=== PATIENT | female | born 1995 | race Caucasian/White ===

== ENCOUNTER 2019-10-05 10:46 | Outpatient (CLI) | payer BC, SELFPAY | END 2019-10-05 10:47 | disposition home or self-care (01) | PROVIDERS: PCP Family Medicine; Visit Provider Family Medicine | DX: Z34.91 Encounter for supervision of normal pregnancy, unspecified, first trimester (principal) | CPT/HCPCS: 36415; 84702 ==

== ENCOUNTER 2020-01-08 10:39 | Outpatient (CLI) | payer BC, SELFPAY ==
--- NOTE | ~2020-01-08 | US_ITS ---
EXAMINATION: US OB >= 14 weeks Fetus EXAM DATE: 01/08/2020 11:37 INDICATION: Anatomy 2nd trimester. TECHNIQUE: Pelvic obstetrical transabdominal sonogram was performed by a technologist. There are mu ltiple grayscale and Doppler images available for interpretation. There are no earlier studies of th is gestation for comparison. FINDINGS: There is a single fetus identified in breech presentation with a heart rate of 151 beats pe r minute. The placenta is located in the anterior position. There is no sonographic evidence of retr oplacental hemorrhage identified. There is subjectively expected amount of amniotic fluid. BIOMETRIC DATA: Biparietal diameter (BPD): 4.5cm ----------------> 19 weeks 3 days. Head circumference (HC): 17.5 cm ----------------> 20 weeks 0 days. Abdominal circumference (AC): 14.8 cm ----------> 20 weeks 0 days. Femur length (FL): 3.0 cm --------------------------> 19 weeks 1 day. These measurements are concordant. HC/AC ratio is 1.18 (The 5th -- 95th percentile range is 1.08-1.26. Estimated weight is 306 g +/- 46 g. This is the 28th percentile when the currently reported cl inical gestation age 20 weeks 0 days, clinical estimated date of delivery (YASMIN-OPE) 05/27 is used. Fet al estimated gestational age based on measurements from this exam is 19 weeks 5 days, with an estimat ed date of delivery (YASMIN-AUA) 05/29. ANATOMIC SURVEY: The following anatomy is identified and is sonographically normal in appearance: Cerebral ventricles Cerebellum Cisterna magna Nuchal fold CTL-spine Four-chamber heart Diaphragm Stomach Kidneys Bladder Three-vessel cord Cord insertion IMPRESSION: 1. Single fetus in vertex presentation with heart rate 151 beats per minute. 2. Estimated weight of 306 grams, 28th percentile using the currently reported clinical gestat ion age of 20 weeks 0 days, YASMIN(OPE) 05/27. 3. Normal anatomic survey. Reviewed, dictated and finalized at location A. PROCESSING CLERK IMPRESSION: 1. Single fetus in vertex presentation with heart rate 151 beats per minute. 2. Estimated weight of 306 grams, 28th percentile using the currently re ported clinical gestation age of 20 weeks 0 days, YASMIN(OPE) 05/27. 3. Normal anatomic survey.
== END 2020-01-08 10:40 ==
PROVIDERS: Visit Provider Family Medicine
DX: Z34.92 Encounter for supervision of normal pregnancy, unspecified, second trimester (principal); Z3A.20 20 weeks gestation of pregnancy
CPT/HCPCS: 76805

== ENCOUNTER 2020-10-16 13:22 | Outpatient (CLI) | payer OTHER, SELFPAY ==
[2020-10-16 14:24] LABS: Free T4 Free Thyroxine 0.61 ng/dL (0.76-1.46); Thyroid Stimulating Hormone 43.94 uIU/mL (0.36-3.74)
== END 2020-10-16 13:23 | disposition home or self-care (01) ==
LOC: CHSLAB 13:26
PROVIDERS: PCP Nurse Practitioner Family; Visit Provider Nurse Practitioner Family
DX: E03.9 Hypothyroidism, unspecified (principal); E05.90 Thyrotoxicosis, unspecified without thyrotoxic crisis or storm
CPT/HCPCS: 36415; 84439; 84443

== ENCOUNTER 2020-10-21 13:04 | Outpatient (CLI) | payer OTHER, SELFPAY ==
--- NOTE | ~2020-10-21 | XR_ITS ---
XR lumbar spine 2-3V DATE: 10/21/2020 13:28 INDICATION: Back pain TECHNIQUE: AP, lateral, coned lateral lumbosacral views COMPARISON: None FINDINGS: No fracture or bone destruction or spondylolisthesis. The lumbar and lumbosacral interspace s are well preserved. The sacroiliac joints are intact. IMPRESSION: Negative Reviewed, dictated and finalized at location A. IMPRESSION: Negative
--- NOTE | ~2020-10-21 | XR_ITS ---
XR thoracic spine 2V DATE: 10/21/2020 13:28 INDICATION: Back pain, radiating to neck. TECHNIQUE: AP, lateral, swimmer views COMPARISON: 10/21/2020 lumbar spine FINDINGS: No fracture or dislocation or bone destruction. The thoracic pedicles are intact. No parasp inal soft tissue thickening. IMPRESSION: Negative Reviewed, dictated and finalized at location A. IMPRESSION: Negative
== END 2020-10-21 13:05 | disposition home or self-care (01) ==
LOC: CHSIMG 13:08
PROVIDERS: PCP Nurse Practitioner Family; Visit Provider Nurse Practitioner Family
DX: M54.9 Dorsalgia, unspecified (principal)
CPT/HCPCS: 72070; 72100

== ENCOUNTER 2021-01-21 19:57 | Emergency (ER) | payer OTHER, SELFPAY ==
[2021-01-21 20:45] VITALS: BP 132/93; PULSE 108; RESP 18; TEMP 37.3; O2SAT 100
--- NOTE | 2021-01-21 20:55 | ED.DENTAL ---
HPI - Dental/Oral General Chief complaint: Dental/Oral Stated complaint: tooth infection Time Seen by Provider: 01/21/21 20:55 Source: patient Mode of arrival: ambulatory Limitations: no limitations History of Present Illness HPI Narrative: 25-year-old woman comes in today complaining of pain in her left upper posterior teeth that has been present for the last 2 days. Patient states that she has had dental pain problem since she had her wisdom tooth extracted there a few months ago. She states her face feels swollen she has a sore throat although she is able to swallow without difficulty. She has had no fever vomiting. She started some antibiotics and pain medication yesterday and has been taking ibuprofen frequently ( like candy ). Complaint: tooth pain Onset (ago): day(s) (2) Duration: constant Severity: severe Relieving factors: nothing Exacerbating factors: nothing Associated symptoms: sore throat Treatment prior to arrival: oral analgesic Related Data Allergies Allergy/AdvReac Type Severity Reaction Status Date / Time acetaminophen [Vicodin] Allergy Intermediate Verified 01/23/18 16:33 hydrocodone [Vicodin] Allergy Intermediate Verified 01/23/18 16:33 latex Allergy Intermediate Verified 01/23/18 16:32 Penicillins Allergy Intermediate Verified 01/23/18 16:32 Radiographic Dyes/Iodine Allergy Intermediate Uncoded 01/23/18 16:32 Review of Systems Review of Systems: All systems reviewed & are unremarkable except as noted in HPI and below Constitutional: Constitutional: Denies chills and Denies fever(s) Eyes: Eyes: Denies change in vision and Denies photophobia ENT: Denies dysphagia, Denies nasal congestion and Denies sore throat Cardiovascular: Cardiovascular: Denies chest pain and Denies radiating jaw, neck or arm pain Respiratory: Respiratory: Denies dyspnea and Denies wheezing Gastrointestinal: Gastrointestinal: Denies nausea and Denies vomiting Integumentary/Breasts: Skin/Breast: Denies pruritus, Denies erythema and Denies rash Allergic/Immunologic: Allergic/Immunologic: Denies lip swelling, Denies throat swelling and Denies tongue swelling PMFSH Past Medical History Medical History Anxiety and depression Hypothyroidism Family History Family History Mother Cerebrovascular accident Social History Social History Smoking status: Never smoker Smokeless tobacco user: chewing tobacco Alcohol intake: current Substance use: never Gender identity (if verbalized by the patient): Female Exam Const: General: healthy appearing and alert Orientation/consciousness: patient oriented x3 Limitations: no limitations Other: Moderate to severe acute distress. HENMT: Head: normal to inspection Ears: external ears normal, TM's normal bilaterally and EAC's normal General nose exam: Normal nares present Face and sinus: normal facial exam Mouth: Yes moist mucous membranes Throat: posterior oropharynx normal Other: Uvula midline. No gingival swelling, erythema or purulent discharge. Eyes: Conjunctivae: conjunctivae normal Pupils: Equal, round and reactive pupils present Resp: Effort & Inspection: normal respiratory effort and not labored Auscultation: clear to auscultation bilaterally, no rales, no rhonchi and no wheezes Cardio: Rate: regular rate Rhythm: regular rhythm Heart sounds: no murmurs Skin: General skin exam: normal color, no jaundice and no pallor Rashes: no rashes Neuro: General: patient oriented x3, moves all extremities, no focal motor deficits and CN's II-XI intact bilaterally Speech: normal speech Gait exam (Neuro): Normal gait present Extrem: General: normal to inspection and no clubbing, cyanosis or edema Psych: Appearance: grossly normal and well kempt Mental Status: mental status grossly normal Affect:
[2021-01-21] MEDS: CLINDAMYCIN HCL 150 MG CAP 600 MG PO (21:21)
[2021-01-21 21:47] VITALS: BP 126/86; PULSE 96; RESP 16; O2SAT 95
== END 2021-01-21 21:50 | disposition home or self-care (01) ==
PROVIDERS: Emergency Provider Emergency Medicine; PCP Nurse Practitioner Family
DX: K08.89 Other specified disorders of teeth and supporting structures (principal)
CPT/HCPCS: 99283; A9270

== ENCOUNTER 2021-02-13 07:16 | Outpatient (CLI) | payer OTHER, SELFPAY ==
--- NOTE | ~2021-02-13 | US_ITS ---
EXAMINATION: US thyroid EXAM DATE: 02/13/2021 07:47 INDICATION: E04.9 - Nontoxic goiter, unspecified. TECHNIQUE: Multiple grayscale and Doppler images of the thyroid were obtained (by a technologist who performed the scan) and subsequently reviewed. Individual nodules and recommendations may be reporte d in accordance with TI-RADS system as designated by the 2017 ACR White Paper TI-RADS committee. The re is no prior study for comparison. FINDINGS: The right thyroid lobe measures 6.2 x 2.5 x 2.7 cm, the left measuring 4.3 x 1.1 x 1.3 cm. There is d iffusely heterogeneous echogenicity and hypervascularity. No definite superimposed focal nodule is id entified. IMPRESSION: Right thyroid lobe enlargement, hypervascular goiter. Reviewed, dictated and finalized at location B. CAL MASSAGE THERAPIST
[2021-02-13 08:41] LABS: Free T4 Free Thyroxine 0.82 ng/dL (0.76-1.46); Thyroid Stimulating Hormone 12.75 uIU/mL (0.36-3.74)
== END 2021-02-13 07:17 | disposition home or self-care (01) ==
LOC: CHSIMG 07:17
PROVIDERS: PCP Nurse Practitioner Family; Visit Provider Nurse Practitioner Family
DX: E04.9 Nontoxic goiter, unspecified (principal); E03.9 Hypothyroidism, unspecified
CPT/HCPCS: 36415; 76536; 84439; 84443

== ENCOUNTER 2021-04-30 13:51 | Outpatient (CLI) | payer OTHER, SELFPAY ==
[2021-04-30 14:48] LABS: Thyroid Stimulating Hormone 2.75 uIU/mL (0.36-3.74)
== END 2021-04-30 13:52 | disposition home or self-care (01) ==
LOC: CHSLAB 13:54
PROVIDERS: PCP Nurse Practitioner Family; Visit Provider Nurse Practitioner Family
DX: E03.9 Hypothyroidism, unspecified (principal)
CPT/HCPCS: 36415; 84443

== ENCOUNTER 2021-06-24 14:53 | Outpatient (CLI) | payer OTHER, SELFPAY ==
--- NOTE | ~2021-06-24 | US_ITS ---
EXAMINATION: US pelvic complete w TV DATE: 06/24/2021 15:11 INDICATION: Pelvic and perineal pain TECHNIQUE: Multiple transabdominal and endovaginal sonographic images of the pelvis were obtained. COMPARISON: None. FINDINGS: The uterus measures 8.1 x 4.1 x 5.0 cm. The endometrial complex measures 6 mm. The right ov ant measures 4.1 x 2.0 x 1.8 cm. The left ovary measures 3.6 x 2.0 x 1.8 cm. There is normal vascular flow in the ovaries. There is no free fluid in the pelvis. IMPRESSION: 1. No sonographic correlate for the patient's symptoms. Reviewed, dictated and finalized at location F.
== END 2021-06-24 14:54 | disposition home or self-care (01) ==
LOC: CHSIMG 14:54
PROVIDERS: PCP Nurse Practitioner Family; Visit Provider Student in an Organized Health Care Education/Training Program
DX: R10.2 Pelvic and perineal pain (principal)
CPT/HCPCS: 76830; 76856

== ENCOUNTER 2021-09-04 09:58 | Outpatient (CLI) | payer OTHER, SELFPAY | END 2021-09-04 09:59 | disposition home or self-care (01) | LOC: CHSLAB 10:02 | PROVIDERS: PCP Nurse Practitioner Family; Visit Provider Nurse Practitioner Family | DX: N91.2 Amenorrhea, unspecified (principal) | CPT/HCPCS: 36415; 84702 ==

== ENCOUNTER 2021-09-14 07:22 | Outpatient (CLI) | payer OTHER, SELFPAY ==
--- NOTE | ~2021-09-14 | US_ITS ---
EXAMINATION: US OB <= 14 weeks fetus DATE: 09/14/2021 07:52 INDICATION: Assess dating and viability of during first trimester TECHNIQUE: Real-time pelvic ultrasound utilizing both a transvaginal and transabdominal probe was pe rformed. The interpreting radiologist was not present for the study. COMPARISON: None. FINDINGS: The uterus measures 9.8 x 5.9 x 6.2 cm. There is a likely intrauterine gestational sac with double d ecidua sign evident peripheral partially 2 mm likely yolk sac. No definitive pole yet evident. The mean sac diameter measures 11 mm, which correlates with an estimated gestational age of 5 weeks a nd 6 days. The bilateral ovaries are not visualized. There is no free fluid in the pelvis. IMPRESSION: 1. Single likely intrauterine gestational with suggestion of a yolk sac but without a clearly discern ible pole likely due to early stage of . 2. Gestational age by ultrasound of 5 weeks 6 day(s) +/- 4 day(s) with ultrasound estimated date of delivery (YASMIN) of 05/11/2022. Reviewed, dictated and finalized at location A. IMPRESSION: 1. Single likely intrauterine gestational with suggestion of a yolk sac but wit hout a clearly discernible pole likely due to early stage of . 2. Gestational age by ultrasound of 5 weeks 6 day(s) +/- 4 day(s) with ultraso und estimated date of delivery (YASMIN) of 05/11/2022.
== END 2021-09-14 07:23 | disposition home or self-care (01) ==
LOC: CHSIMG 07:23
PROVIDERS: PCP Nurse Practitioner Family; Visit Provider Student in an Organized Health Care Education/Training Program
DX: Z34.91 Encounter for supervision of normal pregnancy, unspecified, first trimester (principal); Z3A.00 Weeks of gestation of pregnancy not specified
CPT/HCPCS: 76801

== ENCOUNTER 2021-09-23 08:42 | Outpatient (CLI) | payer OTHER, SELFPAY ==
--- NOTE | ~2021-09-23 | US_ITS ---
EXAMINATION: US OB <=14 wk fetus w TV DATE: 09/23/2021 09:15 INDICATION: First trimester viability assessment TECHNIQUE: Real-time pelvic transabdominal and transvaginal ultrasound was performed. COMPARISON: 09/14/2021 FINDINGS: The uterus measures 8.8 x 6.1 x 7.1 cm. There is an intrauterine gestational sac. There is an approximately 1.9 x 0.6 cm hypoechoic area adjacent to the gestational sac. A yolk sac is identif ied. heart motion is identified measuring 155 beats per minute (bpm) by M-mode Doppler. The fet al crown rump length measures 9 mm , which correlates with an estimated gestational age of 6 weeks an d 6 day(s) (+/-) 4 day(s). The right ovary measures 2.3 x 2.1 x 1.1 cm. The left ovary measures 2.9 x 1.6 x 2.6 cm. There is nor mal vascular flow in the ovaries. There is trace free fluid adjacent to the left ovary. IMPRESSION: 1. Live intrauterine with an estimated gestational age of 6 weeks and 6 day(s) (+/-) 4 day( s) and an estimated delivery date of 05/13/2022. 2. Small subchronic hematoma. Reviewed, dictated and finalized at location B. IMPRESSION: 1. Live intrauterine with an estimated gestational age of 6 weeks and 6 day(s) (+/-) 4 day(s) and an estimated delivery date of 05/13/2022. 2. Small subchronic hematoma.
== END 2021-09-23 08:43 | disposition home or self-care (01) ==
LOC: CHSIMG 08:44
PROVIDERS: PCP Nurse Practitioner Family; Visit Provider Student in an Organized Health Care Education/Training Program
DX: Z32.00 Encounter for pregnancy test, result unknown (principal)
CPT/HCPCS: 76801; 76817

== ENCOUNTER 2021-11-13 11:24 | Outpatient (CLI) | payer OTHER, SELFPAY ==
[2021-11-13 11:57] LABS: Basophils Percent Auto 0.4 % (0.2-1.2); Eosinophils Absolute Auto 0.1 K/mm3 (0-0.3); Hematocrit 39.7 % (37.0-47.0); Hemoglobin 13.7 g/dL (12.0-15.0); Immature Granulocyte Absolute 0.05 K/mm3 (0.00-0.031); Immature Granulocyte Percent A 0.5 % (0-0.5); Mean Corpuscular HGB Conc 34.5 g/dl (32-36); Mean Corpuscular Hemoglobin 31.6 pg (26-34); Mean Corpuscular Volume 91.7 fl (80-100); Mean Platelet Volume 10.2 fl (7.4-10.4); Monocytes Absolute Auto 0.6 K/mm3 (0.1-0.6); Neutrophils Absolute Auto 7.8 K/mm3 (1.3-6.7); Neutrophils Percent Auto 71.1 % (45.5-73.1); Platelet Count Result 307 k/mm3 (150-375); Red Blood Count 4.33 M/mm3 (4.2-5.4); Red Cell Distribution Width 12.8 % (11.5-14.5); White Blood Count 10.9 K/mm3 (4.5-10.0)
[2021-11-13 12:55] LABS: Vitamin D 25 Hydroxy 31.4 ng/mL
[2021-11-13 13:12] LABS: HIV 1/2 Ab P24 Ag Result Negative (Negative)
[2021-11-13 13:15] LABS: Hepatitis B Surface Antigen Negative (Negative); Rubella IgG Antibody 26.4 IU/ML
[2021-11-13 13:31] LABS: Hepatitis C Virus Antibody Negative (Negative)
[2021-11-13 13:47] LABS: Rapid Plasma Reagin Non-Reactive (NonReactive)
[2021-11-17 17:51] LABS: Hematocrit 42.7 % (35.0-45.0); Hemoglobin 13.9 g/dL (11.7-15.5); MCH 31.5 pg (27.0-33.0); MCV 96.8 fL (80.0-100.0); RDW 12.9 % (11.0-15.0); Red Blood Cell Count 4.41 Mill/uL (3.80-5.10)
[2021-11-17 19:02] LABS: Varicella IgG Antibody <135.00 Index (>=165.00)
== END 2021-11-14 12:00 | disposition home or self-care (01) ==
PROVIDERS: Nurse Practitioner Family; PCP Student in an Organized Health Care Education/Training Program; Visit Provider Student in an Organized Health Care Education/Training Program
DX: Z34.90 Encounter for supervision of normal pregnancy, unspecified, unspecified trimester (principal); N91.2 Amenorrhea, unspecified; Z3A.00 Weeks of gestation of pregnancy not specified
CPT/HCPCS: 36415; 82306; 83021; 84443; 84702; 85025; 86592; 86703; 86762; 86787; 86803; 86850; 86900; 86901; 87077; 87086; 87186; 87340; G0432

== ENCOUNTER 2022-02-16 10:53 | Outpatient (CLI) | payer BC, SELFPAY ==
[2022-02-16 11:58] LABS: Basophils Absolute Auto 0.03 K/mm3 (0.00-0.10); Basophils Percent Auto 0.3 % (0.0-1.0); Eosinophils Absolute Auto 0.12 K/mm3 (0.02-0.50); Eosinophils Percent Auto 1.2 % (1.0-6.0); Hematocrit 37.2 % (35.0-49.0); Hemoglobin 12.5 g/dL (12.0-15.0); Immature Granulocyte Absolute 0.08 K/mm3 (0.00-0.00); Immature Granulocyte Percent A 0.8 % (0.0-0.0); Lymphocytes Absolute Auto 1.91 K/mm3 (1.10-4.50); Lymphocytes Percent Auto 18.7 % (18.0-42.0); Mean Corpuscular HGB Conc 33.6 g/dL (32.0-36.0); Mean Corpuscular Hemoglobin 32.1 pg (27.0-31.0); Mean Corpuscular Volume 95.6 fL (78.0-102.0); Mean Platelet Volume 9.9 fl (9.2-11.8); Monocytes Absolute Auto 0.41 K/mm3 (0.10-0.90); Neutrophils Absolute Auto 7.7 K/mm3 (1.7-7.2); Platelet Count Result 270 K/mm3 (150-420); Red Blood Count 3.89 M/mm3 (4.20-5.40); Red Cell Distribution Width 12.6 % (11.6-14.4); White Blood Count 10.2 K/mm3 (4.8-10.8)
[2022-02-16 12:40] LABS: Thyroid Stimulating Hormone 1.81 uIU/mL (0.36-3.74)
[2022-02-16 12:41] LABS: Glucose 1 Hour PP 50gm Dose 136 mg/dL (70-130)
[2022-02-19 17:26] LABS: T4 Thyroxine 13.3 mcg/dL (5.9-10.3)
== END 2022-02-16 10:54 | disposition home or self-care (01) ==
LOC: CHSLAB 10:55
PROVIDERS: PCP Student in an Organized Health Care Education/Training Program; Visit Provider Student in an Organized Health Care Education/Training Program
DX: Z34.82 Encounter for supervision of other normal pregnancy, second trimester (principal)
CPT/HCPCS: 36415; 82947; 84436; 84443; 85025

== ENCOUNTER 2022-02-24 11:06 | Outpatient (CLI) | payer BC, SELFPAY ==
[2022-02-24 11:58] LABS: Glucose Fasting Gestational 81 mg/dL (>/=95)
[2022-02-24 12:57] LABS: Glucose 1 Hour Gest 128 mg/dL (70-130)
[2022-02-24 13:51] LABS: Glucose 2 Hour Gest 138 mg/dL (<155)
[2022-02-24 14:47] LABS: Glucose 3 Hour Gest 125 mg/dL (>/=140)
== END 2022-02-24 11:07 | disposition home or self-care (01) ==
LOC: CHSLAB 11:08
PROVIDERS: PCP Obstetrics & Gynecology; Visit Provider Student in an Organized Health Care Education/Training Program
DX: O99.810 Abnormal glucose complicating pregnancy (principal); Z3A.00 Weeks of gestation of pregnancy not specified
CPT/HCPCS: 36415; 82951; 82952

== ENCOUNTER 2022-03-22 14:18 | Outpatient (CLI) | payer BC, SELFPAY ==
[2022-03-22 14:31] LABS: Basophils Absolute Auto 0.02 K/mm3 (0.00-0.10); Basophils Percent Auto 0.2 % (0.0-1.0); Eosinophils Absolute Auto 0.15 K/mm3 (0.02-0.50); Eosinophils Percent Auto 1.4 % (1.0-6.0); Hematocrit 36.3 % (35.0-49.0); Hemoglobin 12.2 g/dL (12.0-15.0); Immature Granulocyte Percent A 0.9 % (0.0-0.0); Lymphocytes Absolute Auto 2.15 K/mm3 (1.10-4.50); Lymphocytes Percent Auto 19.5 % (18.0-42.0); Mean Corpuscular HGB Conc 33.6 g/dL (32.0-36.0); Mean Corpuscular Hemoglobin 31.5 pg (27.0-31.0); Mean Corpuscular Volume 93.8 fL (78.0-102.0); Mean Platelet Volume 9.9 fl (9.2-11.8); Monocytes Absolute Auto 0.88 K/mm3 (0.10-0.90); Neutrophils Absolute Auto 7.7 K/mm3 (1.7-7.2); Platelet Count Result 281 K/mm3 (150-420); Red Blood Count 3.87 M/mm3 (4.20-5.40); Red Cell Distribution Width 12.6 % (11.6-14.4)
[2022-03-22 15:33] LABS: HIV 1 P24 AG Negative (Negative); HIV 1/2 AB Negative (Negative)
[2022-03-24 15:05] LABS: RPR Screen Non-Reactive (Non-Reactive)
== END 2022-03-22 14:19 | disposition home or self-care (01) ==
LOC: CHSLAB 14:20
PROVIDERS: PCP Obstetrics & Gynecology; Visit Provider Obstetrics & Gynecology
DX: Z34.90 Encounter for supervision of normal pregnancy, unspecified, unspecified trimester (principal)
CPT/HCPCS: 36415; 85025; 86592; 86703

== ENCOUNTER 2022-05-06 10:56 | Outpatient (RCR) | payer BC, SELFPAY ==
--- NOTE | ~2022-05-06 | US_ITS ---
EXAMINATION: US OB follow up DATE: 05/06/2022 12:13 INDICATION: Polyhydramnios. Third trimester. TECHNIQUE: Real-time ultrasound of the pelvis was performed. COMPARISON: Ultrasound 09/23/2021, 09/14/21 FINDINGS: There is a single living fetus in vertex presentation. The placenta is right posterior. heart rate is 132 beats per minute (bpm). The amniotic fluid index is 21.7 cm, which is normal. The following biometric data were obtained: Biparietal diameter (BPD): 9.7 cm; head circumference (HC): 36.4 cm; abdominal circumference (AC): 35 .4 cm; femur length (FL): 7.3 cm. These measurements are concordant. Estimated weight is 3771 g +/- 566 g, which correlates with the 78th percentile when 05/13/22 is used as estimated date of delivery. As single measurements, these parameters are each equal to the following estimated gestational ages: BPD: 39 weeks 6 days. HC: Out of range. AC: 39 weeks 2 days. FL: 37 weeks 2 days. estimated gestational age based solely on measurements from this exam is 38 weeks 6 days +/- 2 weeks 5 days. IMPRESSION: 1. Single living fetus in vertex presentation. 2. Estimated weight is 3771 g +/- 566 g, which correlates with the 78th percentile when 3 is used as estimated date of delivery. This date was set by ultrasound on 09/23/2021. Reviewed, dictated and finalized at location A. SANDER IMPRESSION: 1. Single living fetus in vertex presentation. 2. Estimated weight is 3771 g +/- 566 g, which correlates with the 78th percentile when 05/13/22 is used as estimated date of delivery. This date was se t by ultrasound on 09/23/2021.
[2022-05-06 11:32] LABS: Alanine Aminotransferase 21 U/L (6-35); Albumin Level 3.4 g/dL (3.5-5.1); Alkaline Phosphatase 218 U/L (38-126); Anion Gap 4 mmol/L (8-16); Aspartate Amino Transferase 23 U/L (14-36); Bilirubin,Total 0.4 mg/dL (0.2-1.3); Blood Urea Nitrogen 4 mg/dL (7-17); Carbon Dioxide 21 mmol/L (22-30); Chloride 107 mmol/L (98-107); Estimated Glomerular Filt Rate > 60; Glucose 83 mg/dL (65-110); Potassium 4.1 mmol/L (3.4-5.0); Sodium 132 mmol/L (137-145)
[2022-05-06 12:00] VITALS: BP 117/70; PULSE 103
== END 2022-05-15 19:52 | disposition home or self-care (01) ==
LOC: ANHOBOP 10:56
PROVIDERS: PCP Nurse Practitioner Family; Visit Provider Obstetrics & Gynecology
DX: O40.3XX0 Polyhydramnios, third trimester, not applicable or unspecified (principal); Z3A.39 39 weeks gestation of pregnancy
CPT/HCPCS: 36415; 59025; 76816; 80053; J2274

== ENCOUNTER 2022-05-10 17:36 | Inpatient (IN) | payer BC, SELFPAY ==
[2022-05-10 17:54] VITALS: BP 120/84; PULSE 105
[2022-05-10 18:00] VITALS: BP 125/72; PULSE 98
[2022-05-10 18:07] LABS: Basophils Percent Auto 0.2 % (0.2-1.2); Eosinophils Absolute Auto 0.2 K/mm3 (0-0.3); Eosinophils Percent Auto 1.3 % (0-4.4); Hematocrit 38.9 % (37.0-47.0); Immature Granulocyte Absolute 0.05 K/mm3 (0.00-0.031); Immature Granulocyte Percent A 0.4 % (0-0.5); Lymphocytes Absolute Auto 2.09 K/mm3 (0.9-3.2); Lymphocytes Percent Auto 17.7 % (18.3-44.2); Mean Corpuscular HGB Conc 33.4 g/dl (32-36); Mean Corpuscular Volume 92.8 fl (80-100); Mean Platelet Volume 10.4 fl (7.4-10.4); Monocytes Absolute Auto 0.9 K/mm3 (0.1-0.6); Monocytes Percent Auto 7.9 % (2.6-8.5); Neutrophils Absolute Auto 8.6 K/mm3 (1.3-6.7); Neutrophils Percent Auto 72.5 % (45.5-73.1); Platelet Count Result 274 k/mm3 (150-375); Red Blood Count 4.19 M/mm3 (4.2-5.4); Red Cell Distribution Width 13.1 % (11.5-14.5); White Blood Count 11.8 K/mm3 (4.5-10.0)
--- NOTE | 2022-05-10 18:25 | LDADM ---
This patient, Vivi Wilks, was admitted to Labor/Delivery/Recovery 108 on 05/10/22 at 17:36. Plans for labor, pain management and were discussed with patient. Patient/family oriented to hospital policies and general routines including ID bracelet, bed and alarms, visiting hours, pain management, procedures, bathroom and other care routines, personal items, smoking policy, room service/diet and guest tray routines, security routines, and visiting hours. Patient/Family are encouraged to report perceived risks to care and to ask questions if they do not understand what they are told or what they should do. See OBIX for further documentation.
[2022-05-10 18:32] VITALS: BMI 39.0
[2022-05-10] MEDS: DINOPROSTONE 10 MG VAG INSERT VAGINAL (18:46)
--- NOTE | 2022-05-10 20:54 | WPDANESEPP ---
Anes - Eval Pre Procedure Procedure: labor epidural Date/Time: 05/10/22 20:54 Preop Diagnosis: pain during labor Pre Op Diagnosis: Induction of Labor Patient Data Age: 26 Gender: F Height: 1.6 m Weight: 100 kg Last Vital Signs Pulse 98 05/10/22 18:00 BP 125/72 05/10/22 18:00 O2 Del Method Room Air 05/10/22 18:32 Allergies Allergy/AdvReac Type Severity Reaction Status Date / Time acetaminophen [Vicodin] Allergy Intermediate unknown Verified 05/06/22 10:20 hydrocodone [Vicodin] Allergy Intermediate unknown Verified 05/06/22 10:20 latex Allergy Intermediate unknown Verified 05/06/22 10:20 Penicillins Allergy Intermediate unknown Verified 05/06/22 10:20 Radiographic Dyes/Iodine Allergy Intermediate unknown Uncoded 05/06/22 10:20 Home Medications Medication Instructions Recorded Confirmed Type prenat.vits,jil,[id number] 1 tablet PO DAILY 09/10/21 11/25/21 History levothyroxine 125 mcg capsule 125 mcg PO DAILY #30 caps 04/30/22 05/10/22 Rx sertraline 50 mg tablet (Zoloft) 50 mg PO DAILY #90 tabs 04/30/22 05/10/22 Rx Laboratory Tests 05/10/22 05/10/22 05/10/22 17:50 17:50 17:50 WBC 11.8 K/mm3 H K/mm3 (4.5-10.0) RBC 4.19 M/mm3 L M/mm3 (4.2-5.4) Hgb 13.0 g/dL g/dL (12.0-15.0) Hct 38.9 % % (37.0-47.0) MCV 92.8 fl fl (80-100) MCH 31.0 pg pg (26-34) MCHC 33.4 g/dl g/dl (32-36) RDW 13.1 % % (11.5-14.5) Plt Count 274 k/mm3 k/mm3 (150-375) MPV 10.4 fl fl (7.4-10.4) Immature Gran % (Auto) 0.4 % % (0-0.5) Neut % (Auto) 72.5 % % (45.5-73.1) Lymph % (Auto) 17.7 % L % (18.3-44.2) [place]ffie % (Auto) 7.9 % % (2.6-8.5) Eos % (Auto) 1.3 % % (0-4.4) Baso % (Auto) 0.2 % % (0.2-1.2) Lymph # (Auto) 2.09 K/mm3 K/mm3 (0.9-3.2) [place]ff[place] # (Auto) 0.9 K/mm3 H K/mm3 (0.1-0.6) Eos # (Auto) 0.2 K/mm3 K/mm3 (0-0.3) Baso # (Auto) 0.0 K/mm3 K/mm3 (0.0-0.1) Abs Immat Gran (auto) 0.05 K/mm3 H K/mm3 (0.00-0.031) Absolute Neuts (auto) 8.6 K/mm3 H K/mm3 (1.3-6.7) Absolute Nucleated RBC 0.0 K/mm3 K/mm3 (0.0-0.012) Nucleated RBC % 0.0 % % (0.0-0.2) RPR Pending Blood Type O Positive Antibody Screen Negative Patient hx anesthesia problems: none Family hx anesthesia problems: none Results Review: All pre-operative results and documents have been reviewed as part of the pre-operative evaluation. [facility] Past Medical History Medical History (Updated 05/10/22 @ 20:54 by Shani Jackson CRNA) Anxiety and depression Hypothyroidism Intrauterine Obesity (BMI 30-39.9) Family History Family History Mother Cerebrovascular accident Hypertension Heart disease Thyroid disorder Social History Social History Smoking status: Never smoker Smokeless tobacco user: chewing tobacco Alcohol intake: current Substance use: never Lack of Transportation: No Lack of Food: Never True Current Housing: I Have Housing Concerned About Future Housing: No Difficulty Paying Gas/Electric Bills: No Difficulty Paying for Meds: No Currently Unemployed: No Education: High School Diploma/GED Difficulty w/ Childcare or Family Care: No Living arrangements: with family Gender identity (if verbalized by the patient): Female Spiritual care concerns: No Exam Day of Procedure 05/10/22 20:54
[2022-05-10 22:06] VITALS: BP 131/84; PULSE 90
[2022-05-10 22:48] VITALS: TEMP 37
[2022-05-11] VITALS (211 sets, daily range): BP systolic 70–159; BP diastolic 28–144; PULSE 72–158; RESP 16–20; TEMP 36.3–37.9; O2SAT 79–100
[2022-05-11 06:35] LABS: Rapid Plasma Reagin Non-Reactive (NonReactive)
[2022-05-11] MEDS: LACTATED RINGERS 1,000 ML 125 ML IV CONT ×4 (07:31→17:58)
[2022-05-11] MEDS: OXYTOCIN 30 UNITS/NS 500 ML 30 UNITS/500 ML BAG IV CONT (07:32)
--- NOTE | 2022-05-11 08:29 | PM.IMHP ---
H&P: HPI History of Present Illness Date/Time: 05/11/22 08:29 Chief Complaint: MIL Narrative: Patient is a at 39 5/7 weeks by first trimester ultrasound. She presented for MIL. PNC significant for hypothyroidism and history of anxiety/depression. Last ultrasound for growth 78%. Labs reviewed. GBS neg. She has been informed of risk benefits of MIL vs spontaneous labor and has opted for MIL. Review of Systems Review of Systems: All systems reviewed & are unremarkable except as noted in HPI and below Constitutional: Constitutional: Reports no additional constitutional complaints and Denies headache(s) Eyes: Eyes: Denies spots in vision ENT: Reports system reviewed and no additional complaints, except as documented and Denies headache(s) Cardiovascular: Cardiovascular: Denies chest pain and Denies dyspnea Respiratory: Respiratory: Denies dyspnea Gastrointestinal: Gastrointestinal: Reports no additional gastrointestinal complaints Genitourinary: Genitourinary: Reports amenorrhea Musculoskeletal: Musculoskeletal: Reports no additional musculoskeletal complaints Integumentary/Breasts: Skin/Breast: Denies breast mass and Denies rash Neurologic: Denies headache(s) Psychiatric: Psychiatric: Reports no additional psychiatric complaints [facility] Past Medical History Medical History Anxiety and depression Hypothyroidism Intrauterine Obesity (BMI 30-39.9) Family History Family History Mother Cerebrovascular accident Hypertension Heart disease Thyroid disorder Social History Social History Smoking status: Never smoker Smokeless tobacco user: chewing tobacco Alcohol intake: current Substance use: never Lack of Transportation: No Lack of Food: Never True Current Housing: I Have Housing Concerned About Future Housing: No Difficulty Paying Gas/Electric Bills: No Difficulty Paying for Meds: No Currently Unemployed: No Education: High School Diploma/GED Difficulty w/ Childcare or Family Care: No Living arrangements: with family Gender identity (if verbalized by the patient): Female Spiritual care concerns: No Meds Home Medications and Allergies Home Medications Medication Instructions Recorded Confirmed Type prenat.vits,jil,[id number] 1 tablet PO DAILY 09/10/21 11/25/21 History levothyroxine 125 mcg capsule 125 mcg PO DAILY #30 caps 03/03/23 03/13/23 Rx sertraline 50 mg tablet (Zoloft) 50 mg PO DAILY #90 tabs 04/30/22 05/10/22 Rx Allergies Allergy/AdvReac Type Severity Reaction Status Date / Time hydrocodone [Vicodin] Allergy Intermediate unknown Verified 05/06/22 10:20 latex Allergy Intermediate unknown Verified 05/06/22 10:20 Penicillins Allergy Intermediate unknown Verified 05/06/22 10:20 Radiographic Dyes/Iodine Allergy Intermediate unknown Uncoded 05/06/22 10:20 Vital Signs Vital Signs - 24 hr 05/10/22 17:54 05/10/22 18:00 05/10/22 22:06 Temperature Pulse Rate 105 H 98 90 Respiratory Rate Blood Pressure 120/84 125/72 131/84 Oxygen Delivery 05/10/22 22:48 05/11/22 01:08 05/11/22 03:46 Temperature 98.6 F Pulse Rate 88 85 Respiratory Rate Blood Pressure 121/71 128/75 Oxygen Delivery 05/11/22 03:47 05/11/22 06:46 05/11/22 06:45 Temperature 97.6 F 97.7 F Pulse Rate 86 85 Respiratory Rate 16 19 Blood Pressure 118/74 118/74 Oxygen Delivery 05/11/22 07:48 05/11/22 08:00 05/10/22 18:32 Temperature Pulse Rate 89 87 Respiratory Rate Blood Pressure 113/76 128/85 Oxygen Delivery Room Air Exam Const: General: no acute distress Eyes: General: appearance normal, both eyes and all related structures Resp: Effort & Inspection: normal respiratory effort Cardio: Rate: regular rate GI: Other: Gravid n
--- NOTE | 2022-05-11 08:29 | PM.OBPNLAB ---
Pain Control Date/time seen: 05/11/22 08:29 FHT 125-130, Cat 1, irreg mild ctx, cerix /-2, AROM clear, 0817. Continue Pitocin.
[2022-05-11] MEDS: fentaNYL CITRATE INJ (*CRX) 100 MCG/2 ML VIAL IV PUSH ×2 (10:35→12:10)
[2022-05-11] MEDS: ePHEDrine sulfate INJ 50 MG/ML AMPUL IV PUSH (13:14)
[2022-05-11] MEDS: diphenhydrAMINE HCl INJ 50 MG/ML VIAL 25 MG IV PUSH (19:05)
--- NOTE | 2022-05-11 21:29 | PM.OBPNLAB ---
Pain Control Date/time seen: 05/11/22 21:29 Comments: FHT 160, Category 2,cervix, ant lip swollen, cervix 8/-1. tachycardia. She was informed of risk of diagnosis of failure to progress, since no change in approx 4 hours. Labor course significant for isolated episodes of bradycardia. The Pitocin was stopped at approximated 1900 and restarted. She has had adequate contractions. She was given Benadryl which did help to reduce the cervical swelling initially. Recommendation for section. Discussed risk benefits of section and risk of continuing labor. Questions answered, she agrees to section.
[2022-05-11] MEDS: ceFAZolin 2 GM/D5W 50 ML 2 GM/50 ML BAG IVPB (21:45)
--- NOTE | 2022-05-11 22:58 | W.PM.PROC2 ---
Procedure Note - Detailed Date of Procedure 05/11/22 Pre-op Diagnosis Failure to dilate Post-op Diagnosis Same Procedure Performed Primary low transverse section Surgeon Prosper Chakraborty MD Anesthesia Epidural Indications Failure to progress/dilate Findings Male , OT position, 8lb 40z, normal appearing fallopian tubes and ovaries bilaterally Description of Procedure After informed consent, risks and benefits of the procedure was discussed with the patient. The patient was taken to the operating room where she was placed in the dorsal lithotomy position with leftward tilt. After the prior placed epidural anesthesia was found to be adequate, she was then prepped and draped in the usual sterile fashion. A Pfannenstiel skin incision was made with a scalpel and carried through to the underlying layer of fascia. The fascia was then nicked in the midline, extending bilaterally. The fascia was dissected off the rectus muscles bluntly and sharply, superiorly and inferiorly. The rectus muscles were in the midline, and peritoneum was identified and entered bluntly. The pelvic organs were visualized. The bladder blade was then inserted. The vesicouterine peritoneum was identified and entered sharply with Metzenbaum scissors and extended bilaterally and then the bladder flap was created digitally. The low transverse uterine incision was then made with the scalpel and extended with bilateral index fingers in a crescent-shaped fashion. The head was delivered and the rest of the was delivered. The nose and mouth suctioned. The cord was clamped twice and cut. The infant was then handed off to the awaiting pediatric staff. The placenta was then delivered manually. The uterine cavity was sponge curretted. The uterus was then exteriorized. The uterine incision was then closed with 0 vicryl in a running locked fashion. A figure of eight of 0 vicryl at the right of incision was used for hemostasis. Hemostasis noted. A second layer of 0 vicryl was used in an imbricating fashion for hemostasis. The posterior cul de sac was irrigated. The uterus was then returned to the abdomen. Bilateral gutters were cleared off all clots and debris. The uterine incision was noted to be hemostatic. Interceed placed on uterine incision and vertically on front of uterus. The muscle bellies were inspected and noted to be hemostatic. The peritoneum was closed with interrupted 3.0. vicrylf The subfascial layer was noted to be hemostatic, and the fascia was closed with 0 Vicryl in a running fashion. The subcutaneous layer was then closed with 3-0 Vicryl in a subcutaneous fashion. The skin was closed with Ensorb dissolveable hui. Dermabond applied at incision. All instruments, needle, and lap counts were correct x3. The patient was taken to the recovery room in stable condition. Estimated Blood Loss 605 Drains No Packing No Pathology Yes (placenta and cord) Complications No immediate complications Condition Stable Disposition Floor [facility] Billing Surgery - Charge Forward: Surgery Billing
[2022-05-12] VITALS (19 sets, daily range): BP systolic 105–142; BP diastolic 56–84; PULSE 88–104; RESP 14–20; TEMP 36.3–38.1; O2SAT 98–100
[2022-05-12] MEDS: CLINDAMYCIN 900 MG/D5W 50 ML 900 MG/50 ML PIGGYBACK 50 MG IVPB (00:35)
--- NOTE | 2022-05-12 01:21 | OBPPTRN ---
Patient transferred to post room #286 via stretcher. Support person present. Oriented to unit, room, information board, rooming in, admission packet and security measures. Patient verbalizes understanding.
[2022-05-12] MEDS: IBUPROFEN 600 MG TABLET PO (02:23)
[2022-05-12] MEDS: DEXTROSE 5%/0.45% SOD CHL 1,000 ML 125 ML IV CONT (03:01)
[2022-05-12 05:12] LABS: Basophils Absolute Auto 0.1 K/mm3 (0.0-0.1); Basophils Percent Auto 0.3 % (0.2-1.2); Eosinophils Absolute Auto 0.1 K/mm3 (0-0.3); Eosinophils Percent Auto 0.3 % (0-4.4); Hematocrit 31.7 % (37.0-47.0); Hemoglobin 10.6 g/dL (12.0-15.0); Immature Granulocyte Absolute 0.08 K/mm3 (0.00-0.031); Immature Granulocyte Percent A 0.4 % (0-0.5); Lymphocytes Absolute Auto 2.13 K/mm3 (0.9-3.2); Lymphocytes Percent Auto 10.8 % (18.3-44.2); Mean Corpuscular HGB Conc 33.4 g/dl (32-36); Mean Corpuscular Hemoglobin 30.6 pg (26-34); Mean Corpuscular Volume 91.6 fl (80-100); Mean Platelet Volume 10.5 fl (7.4-10.4); Monocytes Absolute Auto 1.5 K/mm3 (0.1-0.6); Monocytes Percent Auto 7.4 % (2.6-8.5); Neutrophils Absolute Auto 15.9 K/mm3 (1.3-6.7); Neutrophils Percent Auto 80.8 % (45.5-73.1); Platelet Count Result 208 k/mm3 (150-375); Red Blood Count 3.46 M/mm3 (4.2-5.4); Red Cell Distribution Width 13.1 % (11.5-14.5); White Blood Count 19.7 K/mm3 (4.5-10.0)
[2022-05-12] MEDS: ceFAZolin 1 GM/NS 50 ML 1 GM/50 ML BAG IVPB ×2 (06:45→14:45)
[2022-05-12] MEDS: LEVOTHYROXINE SODIUM 125 MCG TABLET PO (06:54)
--- NOTE | 2022-05-12 09:38 | P.PNOB_ITS ---
OB - PN: Subj Subjective Date/time seen: 05/12/22 09:38 Interval history: She has not ambulated, no leg pain or SOB or CP. Lochia decreasing. No emesis. Patient comments: pain well controlled; no flatus present [place] baby status: doing well OB - PN: Obj Data Labs 05/12/22 04:28 Labs: Laboratory Results - last 24 hr 05/12/22 04:28 WBC 19.7 H RBC 3.46 L Hgb 10.6 L Hct 31.7 L MCV 91.6 MCH 30.6 MCHC 33.4 RDW 13.1 Plt Count 208 MPV 10.5 H Immature Gran % (Auto) 0.4 Neut % (Auto) 80.8 H Lymph % (Auto) 10.8 L [place] % (Auto) 7.4 Eos % (Auto) 0.3 Baso % (Auto) 0.3 Lymph # (Auto) 2.13 [place] # (Auto) 1.5 H Eos # (Auto) 0.1 Baso # (Auto) 0.1 Abs Immat Gran (auto) 0.08 H Absolute Neuts (auto) 15.9 H Absolute Nucleated RBC 0.0 Nucleated RBC % 0.0 OB - PN A/P Assessment and Plan (1) delivery delivered: Code(s): O82 - Encounter for delivery without indication Status: Acute Assessment and Plan: POD1 Doing well. Continue routine post c/s care. Continue antibiotics for 24 hour prophylactic due to elevated temp and after delivery. Time Spent With Patient Time: Total time spent is greater than 50% in coordination of care (as documented) at patient's floor/unit and/or counseling patient: Exam Const: General: comfortable and no acute distress Resp: Effort & Inspection: normal respiratory effort GI: Other: incision clean dry intact, uterus firm -2 umb Extrem: General: normal to inspection and no calf tenderness Psych: Mental Status: mental status grossly normal Affect: normal affect
[2022-05-12] MEDS: MULTIVIT/MIN/PREN/FOL AC/IRON TABLET 1 TAB PO (10:00)
[2022-05-12] MEDS: KETOROLAC 30 MG/ML VIAL (*BKC) IV PUSH ×2 (10:00→17:19)
[2022-05-12] MEDS: oxyCODONE/ACETAMINOPHEN (*CRX) 10-325 MG TABLET 1 TAB PO ×2 (10:00→22:00)
[2022-05-12] MEDS: DOCUSATE SODIUM 100 MG CAPSULE PO ×2 (10:00→16:30)
--- NOTE | 2022-05-12 10:25 | WPDANLDPN2 ---
Anes-Prog Note L&D Date/Time: 05/12/22 10:25 Comfortable throughout: labor and delivery Neuraxial method: epidural Epidural/Spinal procedure site: clean & non-tender Neuro status: Neuro function grossly intact. Cardiovascular status: normal Respiratory status: normal Airway patency: baseline Mental status: baseline Post-Op hydration status: normal Vital Signs: Last Vital Signs Temp 37.4 C 05/12/22 08:30 Pulse 104 H 05/12/22 08:30 Resp 16 05/12/22 08:30 BP 105/69 05/12/22 08:30 Pulse Ox 99 05/12/22 08:30 O2 Del Method Room Air 05/12/22 02:29 Pain score (VAS): 0 I/O: Intake & Output 05/11/22 05/12/22 05/12/22 23:59 07:59 15:59 Intake Total 1999 200 Output Total 200 6799 704 Balance 7091 -5412 -085 Post-procedural complaints: none Patient feedback: Patient satisfied with anesthetic care.
--- NOTE | 2022-05-12 11:10 | PC.NURSE ---
[id number] Introductions were made, then consulted with patient to assess needs related to . Mother led the conversation with her?plans to feed?her infant and the?experience so far. Mother states she is independently and without pain. Resources provided for inpatient and outpatient services with the feeding sheet, mom/baby guide and name written on the white board. Mother voiced understanding of information and will call if there is a request for assistance since infant was taken to the nursery. Dr. Chakraborty entered the room and consult was stopped at this time. Reported to the primary RN.
[2022-05-12] MEDS: CLINDAMYCIN 900 MG/D5W 50 ML 900 MG/50 ML PIGGYBACK 100 MG IVPB (15:15)
--- NOTE | 2022-05-12 15:42 | PC.NURSE ---
[id number] Consulted with patient to assess needs related to . Mother led conversation with her experience with feeding baby so far. Mother works well with her infant with encouragement. Mother is in a chair. Attempts were made to latch infant, however; infant was resistance to latch and mother is not comfortable. Mother was encouraged to recline in her bed comfortably. Reviewed working with , supporting breast and how to protect the nipples with an optimal deep latch, good positioning, and good hand washing. Mother demonstrated hand expression and milk was collected. Infant was finger fed and spoon fed the 1/2 tsp of colostrum. Encouraged understanding the benefits of skin to skin, responding to feeding cues, frequencies of feeding 8-12 times in 24 hours (approximately 2-3 hours), duration of feedings, milk production, intake/output feeding sheet and signs of adequate intake encouraging swallowing at the breast. Reviewed positioning and alignment, supporting breast, off-centered (asymmetrical latch) and leading with the chin with big, open, wide gape. latched optimally to the left breast in football position. Education given to mother of how to visualize suck/swallow ratios and listen for drinking at the breast. Infant was able to maintain latch without discomfort to mother for 5-8 minutes, then detached. was placed skin to skin on mother, then offered the right breast using football positioning. latched optimally and swallowing was visualized and heard with mother acknowledging the drinking signs. detached after 10 minutes content with hands relaxed and placed skin to skin. Mother was encouraged to breastfeed when infant demonstrates feeding cues and to aim for every 2-3 hours to wake is needed. Nipple care reviewed with optimal latch, good positioning and using clean hands when feeding her infant and touching her breast. Mother voiced understanding of the education shared, to call for assistance if the infant does not latch or if there is discomfort with . Reported to the primary RN.
[2022-05-12] MEDS: SIMETHICONE 80 MG TAB.CHEW PO (16:30)
[2022-05-12] MEDS: oxyCODONE/ACETAMINOPHEN (*CRX) 5-325 MG TABLET 1 TABLET PO (16:30)
--- NOTE | 2022-05-12 16:32 | WPDANLDNPN2 ---
Anes-Prog Note L&D-Neuraxial Date/Time: 05/12/22 16:32 Neuraxial medications: epidural PF morphine Opiod-related complaints: none Patient feedback: Patient satisfied with post-operative pain management.
[2022-05-12] MEDS: SERTRALINE HCL 50 MG TABLET PO (22:00)
[2022-05-13] MEDS: oxyCODONE/ACETAMINOPHEN (*CRX) 10-325 MG TABLET 1 TAB PO ×4 (04:50→16:59)
[2022-05-13] MEDS: LEVOTHYROXINE SODIUM 125 MCG TABLET PO (07:18)
[2022-05-13 07:50] VITALS: BP 117/74; PULSE 95; RESP 16; TEMP 37.2; O2SAT 98
[2022-05-13] MEDS: MULTIVIT/MIN/PREN/FOL AC/IRON TABLET 1 TAB PO (08:51)
[2022-05-13] MEDS: DOCUSATE SODIUM 100 MG CAPSULE PO ×2 (08:51→16:58)
[2022-05-13] MEDS: IBUPROFEN 600 MG TABLET PO ×3 (08:52→22:52)
[2022-05-13] MEDS: TETANUS,DIPHTHERIA,AC PERTUSSIS ADULT (0.5 ML) BOOSTRIX IM (09:22)
--- NOTE | 2022-05-13 09:46 | PM.OBPNVD ---
OB - PN: Subj Subjective Date/time seen: 05/13/22 09:46 Interval history: She has ambulated without problems, positive flatus, pain mostly with sitting to standing, binder helps. Lochia decreasing. Tolerating regular food. States her anxiety is doing well. Patient comments: tolerating diet and flatus present [place] baby status: doing well OB - PN: Obj Data Labs 05/12/22 04:28 OB - PN A/P Assessment and Plan (1) delivery delivered: Code(s): O82 - Encounter for delivery without indication Status: Acute Assessment and Plan: POD2 s/p primary for failure to progress. Continue routine post care. Time Spent With Patient Time: Total time spent is greater than 50% in coordination of care (as documented) at patient's floor/unit and/or counseling patient: Exam Const: General: no acute distress Resp: Effort & Inspection: normal respiratory effort GI: Inspection: normal to inspection Other: incision intact clean dry, fundus firm -2 umb nontender Extrem: General: normal to inspection and no calf tenderness Psych: Mental Status: mental status grossly normal Affect: normal affect
--- NOTE | 2022-05-13 09:49 | PM.OBDSVD ---
DS: Admitting Diagnosis Discharge Date 05/14/22 Admitting Diagnosis Medical induction of labor DS: Discharge Diagnosis Discharge Diagnosis Plan Failure to dilate Intrauterine delivered. OB - DS: Summary Hospital Course Hospital Course: She was admitted for MIL. She had cervidil and subsequent AROM and Pitocin. Labor course significant for failure to dilate. She had an uncomplicated primary section. She had prophylactic antibiotics started for fever at time of section. Antibiotics stopped after three doses. She was restarted on her Levothyroxine and Sertraline that she self stopped a week ago. She was afebrile. She denied anxiety during the period. Had adequate pain control, was ambulating and tolerating regular diet. She was doing well on POD3 and discharged to home. Discharge precautions discussed. OB Procedures : Ultrasound OB Procedures Intrapartum: OB Procedures: : Antibiotics Peripartum Data Delivery Method: Section Procedures: Procedures Operation Date: 05/11/22 21:30 Actual Procedure Side Surgeon p Section Prosper Chakraborty MD complications: none Status at Discharge Functional status at discharge: independent ambulation Time Spent with Patient Time attestation: Total time spent providing and/or coordinating discharge services: Exam Const: General: cooperative Orientation/consciousness: oriented to person, oriented to place and oriented to time HENMT: Face/Nose/Sinus: Normal external nose present Eyes: General: appearance normal, both eyes and all related structures Resp: Effort & Inspection: normal respiratory effort GI: Inspection: normal to inspection Skin: General skin exam: normal color Neuro: General: oriented to person, oriented to place and oriented to time Extrem: General: normal to inspection and no calf tenderness Psych: Appearance: grossly normal Mental Status: mental status grossly normal DS: Data Data Completed and Pending Pending studies at discharge: Pending at discharge 05/11/22 21:57 Surgical [PTH] Routine Discharge Plan Discharge Attending physician on discharge: Prosper Chakraborty Consulting providers: Shani Jackson Discharging Clinician: Prosper Chakraborty Anticipated Discharge Date/Time: 05/14/22 08:58 Patient Disposition: Home, Self-Care Activity: may shower, may drive after 2 weeks and pelvic rest Diet: regular Patient Instructions: Antibiotic Form, (DC), (GEN) Stand Alone Forms: General Discharge Information Follow-up/Referrals: Prosper Chakraborty MD [Physician] - 2 Weeks (Call for appointment) Discharge Medications: New oxycodone-acetaminophen 5-325 mg Tablet 1 tablet PO Q4H PRN (Reason: Pain Rated 5 Or Less) Qty: 25 0RF sertraline [Zoloft] 50 mg Tablet 50 mg PO HS Qty: 30 0RF levothyroxine [Synthroid] 125 mcg Tablet 125 mcg PO DAILY@0630 Qty: 30 0RF Continued prenat.vits,jil,[id number] Tablet 1 tablet PO DAILY sertraline [Zoloft] 50 mg tablet 50 mg PO DAILY Qty: 90 0RF levothyroxine 125 mcg capsule 125 mcg PO DAILY Qty: 30 0RF Date of admission: 05/10/22 17:36 Primary Care Provider: Reema Yu Admitting Provider: Prosper Chakraborty Attending physician on admission: Prosper Chakraborty Condition: Stable
--- NOTE | 2022-05-13 10:17 | PC.NURSE ---
[id number] Purposefully rounded to assess needs. Mother is holding crying . Reviewed soothing infant with parents. Father of baby has infant calm with upright holding, patting the bottom and quiet noise. Reviewed how feedings have been going and mother states cluster fed last night. Reminded parents of the challenges of the second 24 hours, feeding often and mother voiced she would call for the next feeding. [id number] [phone] Mother called for assistance with feeding . Reviewed STS, patting bottom, shhhing to calm infant for . Reviewed hand expression to feed to infant to help calm, prepare breast and infant for . Reviewed positioning, sandwich hold and alignment after infant lapped up 1/4 tsp of human milk, then latched effectively to the right breast using cross cradle. Infant detached after 5 min, placed skin to skin and stimulated for wakefulness. After infant demonstrated feeding cues infant was positioned to the right breast using football positioning. Education given to mother of how to visualize suck/swallow ratios, listen for drinking at the breast an swallowing was visualized. was able to maintain latch without discomfort to mother. had a stool while . Encouraged parents to place skin to skin after on the right breast, then call for assistance offering the left breast. Mother voiced understanding of skin to skin, stimulating with massage touch, responsive feedings, hand expressed colostrum, talking to to encourage if it has been 2 -2.5 hours since the start of the last , to call if does not latch, or if there is discomfort with . Resources provided for inpatient/outpatient with business card, feeding sheet and the mom/baby guide. Parents voiced understanding of information, demonstrated learning and will call if there is a request for assistance. Reported to the primary RN.
--- NOTE | 2022-05-13 10:44 | PC.NURSE ---
[id number] Mother called and requested assistance. Reviewed positioning, supporting the breast with the sandwich hold to facilitate a deep latch, asymmetrical latch (off-center), leading with the chin with a big, open, wide gape and body close to mother. Infant latched optimally to the left breast in football position. Education given to mother of how to visualize suck/swallow ratios and listen for drinking at the breast. Infant was able to maintain latch without discomfort to mother and swallowing visualized. Nipple care reviewed with optimal latch and good positioning. Parents voiced understanding of information, demonstrated learning and will call if there is a request for assistance, doesn't latch with the next feeding or there is pain with latching. Reported to the primary RN.
--- NOTE | 2022-05-13 15:36 | PC.NURSE ---
[id number] Consulted with patient to assess needs related to and father of baby states they were about to call for me. Mother works well with her infant with encouragement. Reviewed working with infant, supporting breast and how to protect the nipples with an optimal deep latch giving infant a mouthful leading with the chin with good positioning. Encouraged understanding the benefits of skin to skin, responding to feeding cues, frequencies of feeding 8-12 times in 24 hours (approximately 2-3 hours), duration of feedings, patting infant and other ways of soothing . Once infant calmed down skin to skin we reviewed positioning and alignment, supporting breast, off-centered (asymmetrical latch) and leading with the chin with big, open, wide gape. Infant latched optimally to the left breast in football position. Education given to mother of how to visualize suck/swallow ratios (at times were 1:1 for 4-5 swallows in a row), listen for drinking at the breast and parents voiced hearing and visualizing hearing swallows. Infant was able to maintain latch without discomfort to mother. After 15-20 minutes was detached and placed skin to skin stimulated with massage touch, changing positioning and patting. Once feeding cues were observed mother was guided as she latched to the right breast effectively using the football positioning. Nipple care reviewed with optimal latch, good positioning and using clean hands when feeding her infant and touching her breast. Reviewed the signs of getting appropriate intake with the adequate output, jaundice levels being low, weight loss just over 5% and the infant having relaxed opened hands and arms. Discussed safe sleeping, staying hydrated and healthy food choices to assist with staying awake while feeding infant. Resources used to facilitate learning were used from the mom and baby guide. Parents voiced understanding of the education shared, to call for assistance if the does not latch or if there is discomfort with . Reported to the primary RN.
[2022-05-13 19:40] VITALS: BP 101/67; PULSE 94; RESP 20; TEMP 36.6
[2022-05-13] MEDS: SERTRALINE HCL 50 MG TABLET PO (21:28)
[2022-05-13] MEDS: oxyCODONE/ACETAMINOPHEN (*CRX) 5-325 MG TABLET 1 TABLET PO (22:53)
[2022-05-14 07:50] VITALS: BP 120/73; PULSE 89; RESP 18; TEMP 36.5; O2SAT 99
[2022-05-14] MEDS: LEVOTHYROXINE SODIUM 125 MCG TABLET PO (07:56)
--- NOTE | 2022-05-14 08:55 | PM.OBPNVD ---
OB - PN: Subj Subjective Date/time seen: 05/14/22 08:55 Interval history: She has ambulated without problems, positive flatus, pain mostly with sitting to standing, binder helps. Lochia decreasing. Tolerating regular food. States her anxiety is doing well. Patient comments: pain well controlled, tolerating diet and other (Decreasing lochia.) [place] baby status: doing well and nursing well OB - PN: Obj Data Labs 05/12/22 04:28 OB - PN A/P Assessment and Plan (1) delivery delivered: Code(s): O82 - Encounter for delivery without indication Status: Acute Plan day: 2 Plan: discharge home and other Comments: POD3 s/p primary . Patient doing well. Follow up 2 weeks. Discharge instructions provided. Time Spent With Patient Time: Total time spent is greater than 50% in coordination of care (as documented) at patient's floor/unit and/or counseling patient: Time with patient: less than 15 minutes Exam Psych: Other: Abd: fundus firm below umbilicus, nontender Incision intact clean dry Ext: nontender
[2022-05-14] MEDS: MULTIVIT/MIN/PREN/FOL AC/IRON TABLET 1 TAB PO (09:06)
[2022-05-14] MEDS: DOCUSATE SODIUM 100 MG CAPSULE PO (09:06)
[2022-05-14] MEDS: oxyCODONE/ACETAMINOPHEN (*CRX) 5-325 MG TABLET 1 TABLET PO ×2 (09:06→16:13)
[2022-05-14] MEDS: IBUPROFEN 600 MG TABLET PO ×2 (09:07→16:13)
--- NOTE | 2022-05-14 09:37 | PC.NURSE ---
Patient was given the opportunity to view the discharge video Mother & Baby Care, The First Two Weeks and to ask questions. Patient declined viewing the video and has been given the mother/baby guide for home reference.
--- NOTE | 2022-05-14 09:42 | PC.NURSE ---
[id number] Primary RN reported was latch to the breast in cradle position. At 0928 RN went into the room to assess latch. was swaddled in mother's arms. Mothers eyes are diverting away from RN. Reviewed protecting the milk supply and stimulating the breast either with effective or pumping if the infant is receiving a bottle. Father of baby states he is not able to help mother with anything. Reviewed the discussion from yesterday concerning soothing with quiet noise, holding, talking, shhing , patting bottom and dressing in one more layer than he would dress himself and going outside on a nice day. Handout was given to Father with ideas of how he can help. Mother was encouraged to call with the next feeding. Mother voiced understanding of education. Reported to Primary RN. Called the REC[employer]ERY [employer]PERATOR and left a message. Called the exchange for the Doctor on-call. Dr. Chakraborty returned call and orders received for care coordination.
--- NOTE | 2022-05-14 13:10 | PC.NURSE ---
[id number] Purposefully rounded to assess needs related to since there had been no call for assistance with the next feeding. Mother works well with her infant. On entry mother is sitting up with latched to the right breast in a non conventional football position. Reviewed working with , supporting breast and how to protect the nipples with an optimal deep latch, good positioning, and visualizing swallowing. doesn't demonstrate swallowing at this time on the right breast and mother states it is starting to hurt so was detached. Encouraged understanding the benefits of skin to skin, responding to feeding cues, frequencies of feeding 8-12 times in 24 hours (approximately 2-3 hours), duration of feedings, milk production, intake/output feeding sheet and signs of adequate intake encouraging swallowing at the breast. Mother receives the offer of assisting with infant to the left breast. Reviewed placing pillows to support at breast level nipple to nose, supporting breast with the sandwich U-hold instead of C-hold, off-centered (asymmetrical latch) and leading with the chin with big, open, wide gape. latched optimally to the left breast in football position. Education given to mother of how to visualize suck/swallow ratios and listen for drinking at the breast. Mother states infant was swallowing earlier on the right breast. Infant was able to maintain latch without discomfort to mother. Nipple care reviewed with optimal latch, good positioning and using clean hands when feeding her and touching her breast. Resources used to facilitate learning were used from the visual handout, tool, mom and baby guide. Mother voiced understanding of skin to skin, stimulating with massage touch, responsive feedings, talking to infant to encourage if it has been 2 -2.5 hours since the start of the last , to call if does not latch, or if there is discomfort with . Resources provided for inpatient/outpatient with business card, feeding sheet, name on the white board and the mom/baby guide. Reported to the primary RN.
--- NOTE | 2022-05-14 16:21 | PCCCNOTE ---
Received referral to see patient at risk for post depression and possible psych eval. Spoke with OMAR Ortez, who was concerned about a change in patient's affect and attitude toward nursing. Dr. Lopez was consulted and Dr. Chakraborty was going to call him to discuss patient situation. Dr. Lopez called me for information. He asked me to see patient for additional psycho social info as well as arranging follow up resources for pt. Met with pt. and her . Pt. was aware of social work consult as well as psych consult. Pt. denies any psych services in the past. She reports that she is prescribed Zoloft by Dr. Chakraborty. She denies any previous mental health services, including counseling. Pt. lives at home with her and 2 year old daughter. They report that they have a strong support system and both have parents who are local and supportive. Father of baby's parents have been keeping the 2 year old while they have been in the hospital. Pt. 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 She reports that their 2 year old is a good baby and has a good routine and sleeps well. Pt. reports that she did not have the experience that she was expecting, as she had a that resulted in a lot of anxiety for both pt. and her . She is also having some struggle with breast feeding. Pt. reports that she had certain expectations of how things would go that have not been met. Pt. and report that they feel great pressure from some family and friends to exclusively breastfeed and that is causing pt. more worry and anxiety. We discussed how worry and anxiety can affect . We discussed options of , supplementing and formula feeding. Pt. reports that she is going to purchase a pump and try that. Affirmation was provided for whichever feeding method works for them. Pt. reports that she does not qualify for [facility] due to income, but has the info to contact [facility] should anything change. Pt. is also technically uninsured at this time due to administrative issues with the insurance company. They need to provide proof of dependence to the insurance before she and baby can be re-added to the policy. This is something that they are working on and pt.'s reports that it is being taken care of and no assistance is needed. They have been given the phone number for billing customer service in the event they do not get this worked out before this claim is billed and they receive a bill. Pt. denies suicidal ideation or homicidal ideation. Pt. denies auditory or visual hallucinations. Pt. denies paranoia. Pt. was agreeable to follow up counseling at the [facility] and asked me to make an appointment for her. Appointment is scheduled for July 06 at 1345. Pt. has been put on a waitlist in the event an earlier appointment becomes available. Dr. Lopez requested a Mini Mental Status Exam be completed. Completed MMSE with pt. and she scored 30/30. Dr. Lopez was updated with all of this information. He discussed with Dr. Chakraborty and it has been decided that pt. can discharge without being seen by Dr. Lopez.
--- NOTE | 2022-05-14 19:08 | WPDCNPSYCH ---
HPI Data of Consult Date/Time: 05/14/22 19:08 Requesting Physician: Prosper Chakraborty MD Primary Care Provider: Reema Yu NP Consult Narrative Narrative: Vivi Wilks is a 26 year old female Was originally consulted for depression. She had been pharmacologically noncompliant for 1 week and then resumed her Zoloft prescribed by her pastoral ministries professor 3 days ago. According to the patient's nurse, Neelima, this is her 2nd baby in its of 1st for failure to progress. She had been seen 7 times by the nurse and seemed to be needing to have patient teaching repeated as if she had heard that same teaching done earlier. On 1 of the occasions the patient had no smiles and was not nodding as she had earlier and her seem frustrated. The patient's feeling that she has to be the 1 to take care of the baby. The father was given teaching on how to provide help with the baby. The patient was being treated with Zoloft 50mg p.o. q.a.m.. Care coordination saw the patient later in the day. The patient scored on mini-mental status exam of 30/30. She had worked in the past as a medical office secretary and appears to have a cognitively intact fund of knowledge and intelligence. The home care music therapist thought she was doing fine and just felt overwhelmed with the 2nd baby in having some anxiety associated with the traumatic delivery. The patient is also feeling pressured by family to breast feed. She takes care of their 2-year-old child. The patient's works. The patient has been feeling exhausted after the delivery and has not gotten as much sleep as she would have preferred. The home care music therapist indicated that the patient appeared to be appropriate with eye contact and affect. The patient's said that they are under a great deal of pressure to breast feed the infant. The patient stopped working about a year ago and has been a [id number] mother. She has good family support. She has a 2-year-old toddler who sleeps through the night and is described as being a good baby. The is supportive. The patient denied suicidal and homicidal ideation. She denied any auditory or visual hallucinations or paranoia. She has a counseling appointment at [facility] on 07/06/2022 and has been placed on the cancellation list. This report was called to Dr. Prosper Gant who saw the patient earlier in the day and had no significant concerns at that moment and actually made arrangements to have the patient discharged today. The consult was written after the patient's nurse voiced some concerns. However after the above information was discerned, a psychiatric consult was rescinded. The patient was not seen by Psychiatry. Neither the patient nor her insurance will be billed. FORMERLY [facility], [facility] Past Medical History Medical History Anxiety and depression Hypothyroidism Intrauterine Obesity (BMI 30-39.9) Family History Family History Mother Cerebrovascular accident Hypertension Heart disease Thyroid disorder Social History Social History Smoking status: Never smoker Smokeless tobacco user: chewing tobacco Alcohol intake: current Substance use: never Lack of Transportation: No Lack of Food: Never True Current Housing: I Have Housing Concerned About Future Housing: No Difficulty Paying Gas/Electric Bills: No Difficulty Paying for Meds: No Currently Unemployed: No Education: High School Diploma/GED Difficulty w/ Childcare or Family Care: No Living arrangements: with family Gender identity (if verbalized by the patient): Female Spiritual care concerns: No Meds Home Medications and Allergies Home Medications Medication Instructions Recorded Confirmed Type prenat.vits,jil,myt-bous-sntac 1 tablet PO DAILY 09/10/21
[2022-05-15 14:56] VITALS: BP 130/87; PULSE 98; RESP 18; TEMP 37; O2SAT 99
== END 2022-05-14 17:35 | disposition home or self-care (01) | DRG 788 ==
LOC: ANHLDR 05-11 12:59 → ANHOB2 05-12 01:22
PROVIDERS: Admitting Provider Obstetrics & Gynecology; PCP Nurse Practitioner Family; Visit Provider Obstetrics & Gynecology
PROC: (CPT 59514; principal; 2022-05-11 21:30)
DX: O62.0 Primary inadequate contractions (principal); O99.892 Other specified diseases and conditions complicating childbirth; O99.284 Endocrine, nutritional and metabolic diseases complicating childbirth; E03.9 Hypothyroidism, unspecified; O99.344 Other mental disorders complicating childbirth; F41.8 Other specified anxiety disorders; O99.214 Obesity complicating childbirth; R00.1 Bradycardia, unspecified; O32.6XX0 Maternal care for compound presentation, not applicable or unspecified; Z3A.39 39 weeks gestation of pregnancy; Z37.0 Single live birth
CPT/HCPCS: 36415; 85025; 86592; 86850; 86900; 86901; 88307; 90715; A9270; J0131; J0690; J1200; J1885; J2210; J2274; J2370; J2405; J2590; J2795; J3010; J7120

== ENCOUNTER 2022-12-16 15:16 | Outpatient (CLI) | payer BC, SELFPAY ==
[2022-12-16 15:32] LABS: Basophils Absolute Auto 0.05 K/mm3 (0.00-0.10); Basophils Percent Auto 0.7 % (0.0-1.0); Eosinophils Absolute Auto 0.26 K/mm3 (0.02-0.50); Eosinophils Percent Auto 3.5 % (1.0-6.0); Hematocrit 42.6 % (35.0-49.0); Hemoglobin 14.4 g/dL (12.0-15.0); Immature Granulocyte Absolute 0.02 K/mm3 (0.00-0.00); Immature Granulocyte Percent A 0.3 % (0.0-0.0); Lymphocytes Absolute Auto 3.01 K/mm3 (1.10-4.50); Lymphocytes Percent Auto 40.1 % (18.0-42.0); Mean Corpuscular HGB Conc 33.8 g/dL (32.0-36.0); Mean Corpuscular Hemoglobin 31.2 pg (27.0-31.0); Mean Corpuscular Volume 92.4 fL (78.0-102.0); Monocytes Absolute Auto 0.44 K/mm3 (0.10-0.90); Monocytes Percent Auto 5.9 % (2.0-11.0); Neutrophils Absolute Auto 3.7 K/mm3 (1.7-7.2); Neutrophils Percent Auto 49.5 % (50.0-70.0); Platelet Count Result 307 K/mm3 (150-420); Red Blood Count 4.61 M/mm3 (4.20-5.40); Red Cell Distribution Width 11.9 % (11.6-14.4); White Blood Count 7.5 K/mm3 (4.8-10.8)
[2022-12-16 16:40] LABS: Alanine Aminotransferase 194 U/L (14-59); Albumin Level 4.3 g/dL (3.4-5.0); Alkaline Phosphatase 109 U/L (46-116); Anion Gap 11 mmol/L (8-16); Aspartate Amino Transferase 60 U/L (15-37); Bilirubin,Total 0.5 mg/dL (0.00-1.00); Blood Urea Nitrogen 13 mg/dL (7-18); Calcium 9.9 mg/dL (8.5-10.1); Carbon Dioxide 27 mmol/L (21-32); Chloride 104 mmol/L (98-108); Estimated Glomerular Filt Rate > 60; Free T4 Free Thyroxine 0.88 ng/dL (0.76-1.46); Glucose 92 mg/dL (70-99); Iron 92 ug/dL (50-170); Magnesium 2.3 mg/dL (1.8-2.4); Osmolality Calculated 294 mOsm/kg (285-295); Potassium 3.9 mmol/L (3.5-5.1); Sodium 142 mmol/L (136-145); Thyroid Stimulating Hormone 2.63 uIU/mL (0.36-3.74); Total Protein 8.1 g/dL (6.4-8.2); Vitamin B12 1057 pg/mL (193-986)
[2022-12-19 20:18] LABS: Vitamin D 25 Hydroxy 23 ng/mL (30-100)
== END 2022-12-16 15:17 | disposition home or self-care (01) ==
LOC: CHSLAB 15:17
PROVIDERS: PCP Nurse Practitioner Family; Visit Provider Nurse Practitioner Family
DX: E03.9 Hypothyroidism, unspecified (principal); R53.83 Other fatigue; Z79.899 Other long term (current) drug therapy
CPT/HCPCS: 36415; 80053; 82306; 82607; 83036; 83540; 83735; 84439; 84443; 85025

== ENCOUNTER 2023-08-19 14:28 | Outpatient (CLI) | payer SELFPAY ==
[2023-08-19 14:43] LABS: Basophils Absolute Auto 0.06 K/mm3 (0.00-0.10); Basophils Percent Auto 0.7 % (0.0-1.0); Eosinophils Absolute Auto 0.16 K/mm3 (0.02-0.50); Hematocrit 40.6 % (35.0-49.0); Hemoglobin 13.9 g/dL (12.0-15.0); Immature Granulocyte Absolute 0.01 K/mm3 (0.00-0.00); Immature Granulocyte Percent A 0.1 % (0.0-0.0); Lymphocytes Absolute Auto 2.25 K/mm3 (1.10-4.50); Lymphocytes Percent Auto 27.6 % (18.0-42.0); Mean Corpuscular HGB Conc 34.2 g/dL (32-36); Mean Corpuscular Hemoglobin 31.9 pg (27.0-31.0); Mean Corpuscular Volume 93.1 fL (78.0-102.0); Mean Platelet Volume 9.6 fl (9.2-11.8); Monocytes Absolute Auto 0.56 K/mm3 (0.10-0.90); Monocytes Percent Auto 6.9 % (2.0-11.0); Neutrophils Absolute Auto 5.12 K/mm3 (1.70-7.20); Neutrophils Percent Auto 62.7 % (50.0-70.0); Platelet Count Result 334 K/mm3 (150-420); Red Blood Count 4.36 M/mm3 (4.20-5.40); Red Cell Distribution Width 11.5 % (11.6-14.4); White Blood Count 8.2 K/mm3 (4.8-10.8)
[2023-08-19 14:44] LABS: Appearance Urine Clear (Clear); Bilirubin Urine Negative (Negative); Blood Urine Negative (Negative); Color Urine Yellow (Yellow); Glucose Urine UA Negative (Negative); Ketones Urine Negative (Negative); Leukocyte Esterase Ur Negative LEU/UL (Negative); Nitrate Urine Negative (Negative); Protein Urine Negative (Negative); pH Urine 7.5 (5.0-8.0)
[2023-08-19 14:46] LABS: Add Urine Microscopic? NO; Pregnancy On Board Control Positive; Urine Pregnancy Test Negative
[2023-08-19 15:14] LABS: Alanine Aminotransferase 45 U/L (14-59); Albumin Level 3.8 g/dL (3.4-5.0); Alkaline Phosphatase 90 U/L (46-116); Anion Gap 6 mmol/L (4-12); Aspartate Amino Transferase 23 U/L (15-37); Bilirubin,Total 0.6 mg/dL (0.00-1.00); Blood Urea Nitrogen 7 mg/dL (7-18); CRP < 0.5 mg/dL (0.0-0.9); Calcium 9.3 mg/dL (8.5-10.1); Carbon Dioxide 29 mmol/L (21-32); Chloride 105 mmol/L (98-108); Estimated Glomerular Filt Rate > 60; Glucose 102 mg/dL (70-99); Osmolality Calculated 288 mOsm/kg (285-295); Potassium 3.7 mmol/L (3.5-5.1); Sodium 140 mmol/L (136-145); Total Protein 7.5 g/dL (6.4-8.2)
== END 2023-08-19 14:29 | disposition home or self-care (01) ==
LOC: CHSLAB 14:29
PROVIDERS: PCP Nurse Practitioner Family; Visit Provider Nurse Practitioner Family
DX: R35.0 Frequency of micturition (principal); R11.0 Nausea; R10.33 Periumbilical pain
CPT/HCPCS: 36415; 80053; 81003; 81025; 85025; 86140

== ENCOUNTER 2024-01-12 11:28 | Outpatient (CLI) | payer BC, SELFPAY ==
[2024-01-12 12:48] LABS: Free T3 2.16 pg/mL (2.18-3.98); Free T4 Free Thyroxine 0.64 ng/dL (0.76-1.46); Thyroid Stimulating Hormone 20.91 uIU/mL (0.36-3.74)
== END 2024-01-12 11:29 | disposition home or self-care (01) ==
LOC: CHSLAB 11:29
PROVIDERS: PCP Family Medicine; Visit Provider Family Medicine
DX: E03.9 Hypothyroidism, unspecified (principal)
CPT/HCPCS: 36415; 84439; 84443; 84481

== ENCOUNTER 2024-12-10 13:06 | Outpatient (CLI) | payer BC, SELFPAY ==
--- NOTE | ~2024-12-10 | US_ITS ---
EXAMINATION: US pelvic complete w TV DATE: 12/10/2024 13:41 INDICATION: Irregular menstruation, unspecified. TECHNIQUE: Multiple transabdominal and transvaginal sonographic images of the pelvis were obtained. COMPARISON: None. FINDINGS: TRANSABDOMINAL ULTRASOUND: The uterus measures 10.5 x 5.4 x 4.0 cm. There is no free fluid in the pelvis. TRANSVAGINAL ULTRASOUND: The endometrial complex measures 5 mm in thickness. The right ovary measures 3.0 x 2.7 x 2.0 cm. The left ovary measures 3.7 x 3.3 x 2.0 cm. There is normal vascular flow in the ovaries. IMPRESSION: 1. Normal pelvis. Reviewed, dictated and finalized at location E. IMPRESSION: 1. Normal pelvis.
== END 2024-12-10 13:07 | disposition home or self-care (01) ==
LOC: CHSIMG 13:07
PROVIDERS: PCP Nurse Practitioner Family; Visit Provider Nurse Practitioner Family
DX: N92.6 Irregular menstruation, unspecified (principal); R93.5 Abnormal findings on diagnostic imaging of other abdominal regions, including retroperitoneum; N83.8 Other noninflammatory disorders of ovary, fallopian tube and broad ligament
CPT/HCPCS: 76830; 76856